=== PATIENT | male | born 1995 | race Two or more races ===

== ENCOUNTER 2024-02-14 14:55 | Outpatient (AMB) | payer OTHER, SELFPAY ==
[2024-02-14 15:07] VITALS: BP 148/80; PULSE 90; O2SAT 99; BMI 29.6
--- NOTE | 2024-02-14 15:07 | A.OFFPC_ITS ---
Vital Signs 02/14/24 15:07 02/14/24 16:02 Height 5 ft 11 in Weight 212 lb BMI 29.6 BP 148/80 H 124/78 Blood Pressure Location Lt brachial Lt brachial Position Sitting Pulse 90 Pulse Source Pulse Oximeter Pulse Oximetry (%) 99 Oxygen Delivery Method Room Air Intake Visit Reasons: New patient Cytology Supervisor Required: No Allergies Penicillins Allergy (Mild, Verified 02/14/24 15:40) Unknown Medication List - Last Reconciled 02/14/24 by Michelle Wagner PA-C insulin glargine (Lantus U-100 Insulin) 30 units subcut DAILY insulin lispro (Humalog KwikPen (U-100) Insulin) 12 units subcut TID lisinopril 10 mg PO DAILY simvastatin 10 mg PO DAILY Tobacco use date assessed: 02/14/24 Dental Screening Dental Screen Date: 02/14/24 Did you have a dental visit in the last 12 months?: Yes Did you have a dental problem in the last 6 months where you did not have access to dental care?: No Was dental information given to patient?: Patient has dentist HPI New patient HPI Details 28 year old male coming to the office fo r the first time. Patient has a history of type 1 diabetes and was previously using a continuous glucose monitor. He has a few concerns today the 1st being a rash on bilateral cheeks and bridge of his nose which has been present for the last 2 weeks he has been using Lubriderm intermittently without good relief. He also mentions his right middle finger is having pain over the knuckle which began 2 days ago and does not identify any injury. [facility] Family History Maternal Grandmother Colon cancer Social History Housing: Apartment Patient Tobacco Use Status: Never used Tobacco service: No Current occupational status: employed Cognitive needs: No Hearing needs: No Vision needs: No Questionnaire PHQ-9 Over the last 2 weeks, how often have you been bothered by any of the following problems? 2. Feeling down, depressed, or hopeless: not at all 3. Trouble falling or staying asleep, or sleeping too much: not at all 4. Feeling tired or having little energy: not at all 5. Poor appetite or overeating: not at all 6. Feeling bad about yourself - or that you are a failure or have let yourself or your family down: not at all 7. Trouble concentrating on things, such as reading the newspaper or watching television: not at all 8. Moving or speaking so slowly that other people could have noticed. Or the opposite - being so fidgety or restless that you have been moving around a lot more than usual: not at all 9. Thoughts that you would be better off or of hurting yourself in some way: not at all Depression Screening Interpretation: Negative Depression Screening Done: Yes 65147 - PHQ-9 Billing: Yes Source: Developed by Drs. Trent Baez, Amy Arango, Juarez Gonzalez and colleagues, with an educational mikayla from [employer]. Thrive Questionnaire Date Thrive assessed: 02/14/24 I am a: Patient What is your living situation today?: I have a steady place to live Within the past 12 months, did the food you bought not last and you didn't have the money to get more?: I choose not to answer this question Within the past 12 months, did you worry whether your food would run out before you got money to buy more?: I choose not to answer this question Do you have trouble paying for medicines?: No Do you have trouble getting transportation to medical appointments?: No Do you have trouble paying your heating and electricity bill?: No Do you have trouble taking care of your child, family member or friend?: No Do you have trouble with day-to-day activities such as bathing, preparing meals, shopping, managing finances, etc.?: No Are you currently unemployed and looking for a job?: No Are you interested in more education?: No Please select the resources that you would like help with: None Currently or been in a relationship where the following occur: I choose not to answer THRIVE Score: 0 AUDIT C Alcohol Use Questionnaire (AUDIT-C) 1. How often do you have a drink containing alcohol?: Never 3. How often do you have six or more drinks on one occasion?: Never Total Score: 0 MARA-7 AMB Questionnaire MARA-7 Date MARA - 7 assessed: 10/23/24 Feeling nervous, anxious, or on edge: 0 = Not at all Not being able to stop or control worryin = Not at all Worrying too much about different things: 0 = Not at all Trouble relaxin = Not at all Being so restless that it is hard to sit still: 0 = Not at all Becoming easily annoyed or irritable: 0 = Not at all Feeling afraid as if something awful might happen: 0 = Not at all Total MARA-7 score (0-4 normal; 5-9 mild; 10-14 moderate; 15-21 severe): 0 Source: Developed by Drs. Trent Baez, Amy Arango, Juarez Gonzalez and colleagues, with an educational mikayla from [employer]. MARA-7 Assessment Billing MARA-7 Assessment Tool: MARA-7 Assessment 77282 Review of Systems Const Denies body aches, Denies fatigue, Denies fever(s), Denies frequent falls, Denies headache(s) and Denies weakness Eyes Reports no additional complaints and Denies change in vision ENT Denies dysphagia, Denies dizziness, Denies facial pain, Denies headache(s), Denies nasal congestion and Denies odynophagia Card Denies chest pain, Denies syncope, Denies irregular heart rhythm, Denies leg edema, Denies lightheadedness and Denies dyspnea Resp Denies cough and Denies dyspnea GI Denies constipation, Denies dysphagia, Denies dyspepsia, Denies diarrhea, Denies nausea, Denies odynophagia and Denies vomiting Denies dysuria, Denies urinary frequency, Denies urinary hesitancy and Denies urinary urgency Musc Denies back pain and Denies myalgias Skin/Breast Reports system reviewed and no additional complaints, except as documented Neuro Denies dizziness, Denies syncope, Denies frequent falls, Denies headache(s) and Denies weakness Psych Reports no additional complaints Endo Denies fatigue Physical exam (Primary Care) Vital Signs: Last Vital Signs Pulse 90 02/14/24 15:07 BP 124/78 02/14/24 16:02 Pulse Ox 99 02/14/24 15:07 Oxygen Delivery Method Room Air 02/14/24 15:07 BMI result Body Mass Index 29.6 Tobacco/Smoking Status: Tobacco use Status Tobacco use date assessed 02/14/24 02/14/24 15:08 Patient Tobacco Use Status Never used Tobacco 02/14/24 15:29 Depression Screening Interpretation: Negative Thrive Assessment: Date of Thrive Assessment Date Thrive assessed 02/14/24 02/14/24 15:08 Currently or been in a relationship where the following occur: I choose not to answer Const General: cooperative, healthy appearing, comfortable and no acute distress Orientation/consciousness: patient oriented x3 HENMT Head: Yes normocephalic Ears: hearing grossly normal bilaterally General nose exam: Normal external nose present Face and sinus: Yes normal facial exam and Yes sinuses nontender Mouth: Normal oral and palatal mucosa present and tongue normal Throat: Yes posterior oropharynx normal Eyes General: appearance normal, both eyes and all related structures Conjunctivae: conjunctivae normal Pupils: Equal, round and reactive pupils present EOM: EOMs intact bilaterally and No Nystagmus present Neck Neck: Yes full ROM and Yes no lymphadenopathy Chest Chest palpation & inspection: normal inspection of the chest Resp Effort & Inspection: normal respiratory effort Auscultation: clear to auscultation bilaterally, no crackles, no rales, no rhonchi and no wheezes Cardio Rate: regular rate Rhythm: regular rhythm Peripheral pulses: radial pulses present and dorsalis pedis present GI Inspection: Yes normal to inspection and No Abdominal wall edema Palpation (GI): Soft to palpation, not firm and nontender Auscultation: normal bowel sounds Rectal Exam - Male: Yes deferred General: Yes no CVA tenderness Back/Spine/Pelvis Back: no CVA tenderness Skin Other: Dry, flaky rash on bilateral cheeks and bridge of nose General skin exam: no rashes or lesions noted Neuro General: patient oriented x3 Cranial nerves: Yes Equal, round and reactive pupils present, Yes Midline tongue present, Yes Ability to bilaterally elevate shoulders present and No Nystagmus present Gait exam (Neuro): Normal gait present Extrem Other: Pain to palpation of upper extremity 3rd digit PIP joint without swelling or erythema General: Yes normal to inspection, Yes full ROM and No edema Psych Speech and movement: Normal speech and movement present Affect: normal affect Attitude: cooperative Insight: Good insight present (Psych) Judgement: Good judgement present (Psych) Coding Level of Care Code New Pt Prev Care 18-39yr(41912 Diagnoses Diabetes mellitus type 1 E10.9 Hypercholesterolemia E78.00 Hypertension I10 Facial rash R21 Finger pain, right M79.644 Annual physical exam Z00.00 Additional Codes MARA-7 Assessment Billing - MARA-7 Assessment Tool: MARA-7 Assessment 83928 ([id number]) Assessment & Plan Assessment & Plan (1) Diabetes mellitus type 1: Code(s): E10.9 - Type 1 diabetes mellitus without complications Category: Medical Plan: Decrease the amount of carbohydrates such as pasta, bread, rice, and potatoes and limit the amount of sweets. Although fruits are generally healthy they should be eaten in moderation as they are still high in sugar. Hemoglobin A1c goal of less than 7%. Ordered for updated blood work. Placed order for continuous glucose monitor and referral placed to endocrinology. (2) Hypercholesterolemia: Code(s): E78.00 - Pure hypercholesterolemia, unspecified Category: Medical Plan: Avoid foods that are high in cholesterol such as red meat, fried foods, eggs and baked goods. Triglyceride goal of less than 150 and LDL goal of less than 100. Continue on simvastatin. Ordered for updated cholesterol labs. (3) Hypertension: Code(s): I10 - Essential (primary) hypertension Category: Medical Plan: Continue on current blood pressure medication. Avoid salt intake and encourage healthy diet and regular exercise. Patient states blood pressures have been normal at home however he does get nervous when coming to the office and we will occasionally see high blood pressures. (4) Facial rash: Code(s): R21 - Rash and other nonspecific skin eruption Category: Medical Plan: Advised patient to continue using Lubriderm and we will give very low dose of steroid lotion to be used for the next 2 weeks. Discussed with patient this medication should not be used for longer than 2 weeks and if it persists can consider referral to Dermatology. Rash not consistent with rosacea or malar rash associated with SLE. (5) Finger pain, right: Code(s): M79.644 - Pain in right finger(s) Category: Medical Plan: Discussed with the patient this is most likely related to muscle or tendon inflammation we will continue to monitor and discussed if pain persists to follow up with the office. (6) Annual physical exam: Code(s): Z00.00 - Encounter for general adult medical examination without abnormal findings Category: Medical Plan: Patient is up-to-date on all recommended routine screenings and vaccinations for his age. Ordered updated blood work and we will follow up in 3 months for follow up on diabetes. Plan This note was constructed using voice recognition software. While every effort has been made to ensure accuracy and manager pulmonary, still areas may have been included sometimes these areas may affect the content or meeting of the given symptoms. Total time spent caring for the patient today was 30 minutes. This includes time spent before the visit reviewing the chart, time spent during the visit, and time spent after the visit and documentation. Orders: Orders Comprehensive Met. Panel Today Z00.00 - Encounter for general adult medical examination without abnormal findings Complete Blood Count Auto Diff Today Z00.00 - Encounter for general adult medical examination without abnormal findings Vitamin B12 and Folate Today Z00.00 - Encounter for general adult medical examination without abnormal findings Free T4 (Free Thyroxine) Today Z00.00 - Encounter for general adult medical examination without abnormal findings Hemoglobin A1c Today E10.9 - Type 1 diabetes mellitus without complications, Z00.00 - Encounter for general adult medical examination without abnormal findings Lipid Panel Today Z00.00 - Encounter for general adult medical examination without abnormal findings TSH reflex Free T4 Today Z00.00 - Encounter for general adult medical examination without abnormal findings Vitamin D 25-OH (D2 and D3) Today Z00.00 - Encounter for general adult medical examination without abnormal findings Microalbumin, Random (w Creat) Today E11.9 - Type 2 diabetes mellitus without complications UA CC w/rflx Micro + Cult Today R35.89 - Other polyuria Referrals Endocrinology Referral E10.9 - Type 1 diabetes mellitus without complications Medications: New insulin glargine (Lantus U-100 Insulin) 30 units (0.3 mL) subcut DAILY 10 mL 0RF insulin lispro (Humalog KwikPen (U-100) Insulin) 12 units (0.12 mL) subcut TID 15 mL 0RF triamcinolone acetonide 0.025% for no longer than 2 weeks at a time. 1 appl topical DAILY 60 mL 0RF flash glucose sensor (FreeStyle Salazar 2 Sensor kit) As directed 1 ea 2RF
[2024-02-14 16:02] VITALS: BP 124/78
== END 2024-02-14 16:12 | disposition home or self-care (01) ==
DX: Z00.00 Encounter for general adult medical examination without abnormal findings (principal); E10.9 Type 1 diabetes mellitus without complications; E78.00 Pure hypercholesterolemia, unspecified; I10 Essential (primary) hypertension; R21 Rash and other nonspecific skin eruption; M79.644 Pain in right finger(s)

== ENCOUNTER → 2024-02-14 14:55 | Outpatient (BNVA) | payer OTHER, SELFPAY | DX: Z00.01 Encounter for general adult medical examination with abnormal findings (principal); E10.9 Type 1 diabetes mellitus without complications; E78.00 Pure hypercholesterolemia, unspecified; R21 Rash and other nonspecific skin eruption; I10 Essential (primary) hypertension; M79.644 Pain in right finger(s) | CPT/HCPCS: 96127; 99385 ==

== ENCOUNTER 2024-02-16 08:10 | Outpatient (REF) | payer OTHER, SELFPAY ==
[2024-02-16 08:26] LABS: MANUAL DIFF FLAG NO
[2024-02-16 08:52] LABS: Basophils Percent Auto 0.9 % (0-2); Eosinophils Absolute Auto 0.1 X10*3/uL (0.0-0.4); Eosinophils Percent Auto 1.8 % (0-4); Hematocrit 46.8 % (42.0-52.0); Imm Gran Abs Auto 0.01 X10*3/uL (0.00-0.03); Imm Gran Pct Auto 0.3 % (0.0-0.4); Lymphocytes Absolute Auto 1.8 X10*3/uL (1.2-4.9); Lymphocytes Percent Auto 53.3 % (20-40); Mean Corpuscular HGB Conc 34.2 g/dl (31.0-36.0); Mean Corpuscular Hemoglobin 29.3 pg (27.0-33.0); Mean Corpuscular Volume 85.6 fL (80.0-98.0); Mean Platelet Volume 10.2 fL (9.4-12.4); Monocytes Absolute Auto 0.3 X10*3/uL (0.1-1.2); Monocytes Percent Auto 8.1 % (2-11); Neutrophils Absolute Auto 1.2 x10*3/uL (2.0-8.3); Neutrophils Percent Auto 35.6 % (45-73); Platelet Count 301 X10*3/uL (160-400); Red Blood Count 5.47 X10*6/uL (4.60-5.80); Red Cell Distribution Width 12.8 % (11.0-16.0); White Blood Count 3.3 X10*3/uL (4.8-10.8)
[2024-02-16 08:57] LABS: Appearance Urine Clear; Color Urine Yellow; Glucose Urine UA >=1000 mg/dL (Negative); Leukocyte Esterase Urine Negative (Negative); Nitrite Urine Negative (Negative); PH 5.5 (5.0-9.0); Specific Gravity - Urine >= 1.030 (1.005-1.025); UMIC TRIGGER UACC YES; Urine Blood Negative (Negative); Urine Ketones Negative (Negative); Urine Protein Negative (Neg-Trace)
[2024-02-16 09:02] LABS: Bacteria Urine None Seen (None Seen); Hyaline Casts Urine 0-2 /LPF (0-2); RBC Urine 0-2 /HPF (0-2); Squamous Epithelial Cell Urine 0-2 /HPF (0-2); WBC Urine 0-5 /HPF (0-5)
[2024-02-16 09:02] LABS: Estimated Average Glucose 177 mg/dL; Hemoglobin A1C 232.8372 umol/L; Hemoglobin A1c % 7.8 % (<6.0); Total Hemoglobin (HGBA1C) 3801.3554 umol/L
[2024-02-16 09:15] LABS: Creatinine Urine 107.27 mg/dL; Microalbum/Creatinine Ratio Ur 31.6 ug/mg cr (<30)
[2024-02-16 09:31] LABS: Albumin Level 4.3 g/dL (3.5-5.0); Alkaline Phosphatase 63 U/L (39-117); Anion Gap 11 (12-20); Aspartate Amino Transferase 38 U/L (5-37); Bilirubin Total 1.4 mg/dL (0.0-1.0); Blood Urea Nitrogen 15 mg/dL (9-16); Calcium 9.8 mg/dL (8.4-10.2); Carbon Dioxide 28 mmol/L (22-29); Chloride 100 mmol/L (96-108); Cholesterol 203 mg/dL (<200); Estimated Glomerular Filt Rate > 60; Glucose Random 320 mg/dL (60-115); HDL Cholesterol 64 mg/dL (>40); LDL Cholesterol Calculated 127 mg/dL (<100); Potassium 4.1 mmol/L (3.3-5.1); Sodium 135 mmol/L (135-145); Total Protein 7.8 g/dL (6.5-8.0); Triglycerides 60 mg/dL (<150)
[2024-02-16 09:34] LABS: Alanine Aminotransferase 90 U/L (0-40)
[2024-02-16 09:41] LABS: TSH reflex Free T4 1.26 uIU/mL (0.32-4.0)
[2024-02-16 09:50] LABS: Folate 13.9 ng/mL (> or = 4.0); Vitamin B12 967 pg/mL (200-900)
[2024-02-21 17:34] LABS: Vitamin D 25-OH, D2 <4 ng/mL; Vitamin D 25-OH, D3 20 ng/mL; Vitamin D 25-OH, Total 20 ng/mL (30-100)
== END 2024-02-16 08:11 | disposition home or self-care (01) ==
LOC: HO.LAB 08:10
DX: Z00.00 Encounter for general adult medical examination without abnormal findings (principal); E10.9 Type 1 diabetes mellitus without complications; E11.9 Type 2 diabetes mellitus without complications
CPT/HCPCS: 36415; 80053; 80061; 81001; 82043; 82306; 82570; 82607; 82746; 83036; 84439; 84443; 85025

== ENCOUNTER 2024-03-19 08:08 | Outpatient (REF) | payer OTHER, SELFPAY ==
[2024-03-19 09:39] LABS: Appearance Urine Clear; Color Urine Yellow; Glucose Urine UA 250 mg/dL (Negative); Leukocyte Esterase Urine Negative (Negative); Nitrite Urine Negative (Negative); PH 5.5 (5.0-9.0); Specific Gravity - Urine 1.025 (1.005-1.025); Urine Blood Negative (Negative); Urine Ketones Negative (Negative); Urine Protein Negative (Neg-Trace)
[2024-03-19 09:40] LABS: Alanine Aminotransferase 62 U/L (0-40); Albumin Level 4.1 g/dL (3.5-5.0); Alkaline Phosphatase 61 U/L (39-117); Aspartate Amino Transferase 28 U/L (5-37); Bilirubin Direct 0.4 mg/dL (0.0-0.5); Bilirubin Total 1.4 mg/dL (0.0-1.0); Total Protein 7.2 g/dL (6.5-8.0)
== END 2024-03-19 08:09 | disposition home or self-care (01) ==
LOC: HO.LAB 08:08
DX: E10.9 Type 1 diabetes mellitus without complications (principal); R79.89 Other specified abnormal findings of blood chemistry; R35.89 Other polyuria
CPT/HCPCS: 36415; 80076; 81003; 82947; 99202

== ENCOUNTER 2024-03-19 14:36 | Outpatient (AMB) | payer OTHER, SELFPAY ==
[2024-03-19 14:40] VITALS: BP 140/90; PULSE 84; BMI 30.5
--- NOTE | 2024-03-19 14:40 | A.OFFVIS_ITS ---
Vital Signs 03/19/24 14:40 Height 5 ft 11 in Weight 218 lb 11.177 oz BMI 30.5 BP 140/90 H Blood Pressure Location Lt brachial Position Sitting Pulse 84 Pulse Source Pulse Oximeter Intake Visit Reasons: T1DM Intake Note: Patient presents today for D1NH follow up visit. Last Diabetic Eye exam: 01/2024 Last Podiatry Visit: Doesn't have one Random Glucose: 98 mg/dl HgA1c:7.8% 02/16/24 Executive Business Coach Required: Yes Executive Business Coach Language: Counter Top Assembler Services: Executive Business Coach Present Information Interpreted: non-clinical & clinical Accompanied by: Self / Same As Patient Allergies Penicillins Allergy (Mild, Verified 03/19/24 14:45) Unknown Medication List - Last Reconciled 03/19/24 by Trent Maynard MD cholecalciferol (vitamin D3) 25 mcg PO DAILY flash glucose sensor (FreeStyle Salazar 2 Sensor kit) As directed insulin glargine-yfgn 30 units (0.3 mL) subcut DAILY insulin lispro (Humalog KwikPen (U-100) Insulin) 12 units (0.12 mL) subcut TID lisinopril 10 mg PO DAILY simvastatin 20 mg PO DAILY triamcinolone acetonide 0.025% 1 appl topical DAILY HPI Comments Details: 28 YO M with is seen in consultation for T1DM at the request of PCP. Initially diagnosed with T1DM in since age 13 when presented with hospitalized after jeshermanfish .Saw stephanie in [place] Was initially started on treatment with insulin . Current regimen: Lantus 30 units Humalog 12 units TID No Checks sugars times per day. Unfortunately, patient did not bring log book or glucometer to visit Most recent A1C: 7.8 , [ Reports low sugars 3 X mo Treats lows with juice, milk . Checks sugar after to ensure it is rising. Waits 30 min to check Family history of autoimmunity in grandmother - Type 2 DM - cousin has Type 1 Has eyes checked yearly, last eye exam 1 mo ago , no retinopathy. Denies neuropathy, Not sees podiatry. Denies nephropathy, on YUNG/ARB. Has HLD, on statin. Denies history of CAD. Had diabetes education in [place] Diet/Carb counting: No Denies prior episodes of DKA. Denies prior severe episodes of hypoglycemia requiring help or hospitalization 2 times - Nov 2021, June and May 2022 . Labs: [facility] Family History Maternal Grandmother Colon cancer Social History Housing: Apartment Patient Tobacco Use Status: Never used Tobacco service: No Current occupational status: employed Cognitive needs: No Hearing needs: No Vision needs: No Physical Exam Vital Signs: Last Vital Signs Pulse 84 03/19/24 14:40 BP 140/90 H 03/19/24 14:40 BMI result Body Mass Index 30.5 Absence of Cushingoid features. Absence of acromegalic features. Neck exam reveals nl size thyroid about 15 gms. No thyroid nodules palpable. No carotid bruits present. Lungs CTA. Heart S1 S2, Reg R/R. No M/R/ G. Skin exam reveals absence of vitiligo or acanthosis nigricans. Abdominal exam reveals Soft NT/ND with NA BS. No organomegaly present. Extrem Other: Visual exam of foot performed. No ulcerations or open lesions. No onchomycosis, no callouses.Pulses 2 + distally. Sensation intact to monofilament exam. Vibratory sensation sensed 10 seconds in right, 10 seconds in left with 128 Hz tuning fork Results Reviewed Results Reviewed: Laboratory Last Values Glucose (Clinic) 98 mg/dL (60-115) 03/19/24 14:49 Assessment & Plan Assessment & Plan (1) Diabetes mellitus type 1: Code(s): E10.9 - Type 1 diabetes mellitus without complications Category: Medical Plan: This 28-year-old male with a history of type 1 diabetes being treated with basal-bolus insulin with fair glycemic control and no known microvascular macrovascular complication Plan is to have the patient check his point of cares pre and post meals. Will prescribe glucose sensor Salazar 3+. Will have patient bring sensor to follow up appointments. Will schedule appointment CDE and restorative rehab aide. Could not make any adjustments to insulin regimen at present time because patient did not have any data. With the help of police sergeant precinct went over correlation of poor glycemic control with development of progression of complications. Patient expressed an interest in diabetic pumps they will discuss this further with the educator. We will also check anti-jaleel 65 antibodies to confirm type 1 diabetes. Also prescribed a glucagon nasal spray Sis and went over sick day rules. He will follow up with Nichole Castro NP in 2 mos Orders: Orders Glutamic acid decarboxylase Ab Today E10.9 - Type 1 diabetes mellitus without complications Referrals Diabetes Education Referral E10.9 - Type 1 diabetes mellitus without c omplications Nutrition/Dietitian Referral E10.9 - Type 1 diabetes mellitus without complications Medications: New glucagon 3 mg/actuation (Baqsimi) 3 mg intranasal ONCE 2 ea 5RF blood-glucose sensor (FreeStyle Salazar 3 Plus Sensor device) As directed change every 14 days 2 ea 5RF Coding Level of Care Code New Pt Level 5 (05480) Diagnoses Diabetes mellitus type 1 E10.9 Time Spent (min) 60
[2024-03-19 14:52] LABS: Glucose, Whole Blood 98 mg/dL (60-115)
== END 2024-03-19 15:46 | disposition home or self-care (01) ==
PROVIDERS: Visit Provider Internal Medicine Endocrinology, Diabetes & Metabolism
DX: E10.9 Type 1 diabetes mellitus without complications (principal)
CPT/HCPCS: 99205

== ENCOUNTER 2024-03-20 08:01 | Outpatient (REF) | payer OTHER, SELFPAY ==
[2024-03-20 10:08] LABS: HBc Num1 0.13 S/CO (0.00-0.79); HBsAGNum1 0.55 S/CO (0.00-0.99); Hepatitis A Antibody IgM 0.19 Index (0-0.79); Hepatitis B Core Antibody Nonreactive (Nonreactive); Hepatitis B Surface Antigen Negative (Negative); ~HepC Num1 0.11 S/CO (0.00-0.79); ~Hepatitis A Antibody IgM Nonreactive (Nonreactive); ~Hepatitis C Antibody Nonreactive (Nonreactive)
[2024-03-20 11:45] LABS: HBS Num2 9.95 mIU/mL (0-7.99); HBS Num3 9.68 mIU/mL (0-7.99); ~Hepatitis B Surface Antibody GRAYZONE (Nonreactive)
[2024-03-24 21:03] LABS: Glutamic acid decarboxylase Ab <5 IU/mL (<5)
== END 2024-03-20 08:02 | disposition home or self-care (01) ==
LOC: HO.LAB 08:01
PROVIDERS: Referring Provider Internal Medicine Endocrinology, Diabetes & Metabolism
DX: E10.9 Type 1 diabetes mellitus without complications (principal); R79.89 Other specified abnormal findings of blood chemistry
CPT/HCPCS: 36415; 86341; 86704; 86706; 86709; 86803; 87340

== ENCOUNTER 2024-04-01 10:33 | Outpatient (REF) | payer OTHER, SELFPAY ==
[2024-04-01 12:03] LABS: Glucose Random 222 mg/dL (60-115)
[2024-04-02 14:34] LABS: C Peptide 0.27 ng/mL (0.80-3.85)
[2024-04-11 04:09] LABS: Insulin Auto Antibody 6.2 U/mL (<0.4)
== END 2024-04-01 10:34 | disposition home or self-care (01) ==
LOC: HO.LAB 10:33
PROVIDERS: Visit Provider Internal Medicine Endocrinology, Diabetes & Metabolism
DX: E10.9 Type 1 diabetes mellitus without complications (principal)
CPT/HCPCS: 36415; 82947; 84681; 86337

== ENCOUNTER 2024-04-10 10:41 | Outpatient (AMB) | payer OTHER, SELFPAY ==
--- NOTE | 2024-04-10 10:49 | A.OFFVIS_ITS ---
Intake Intake Visit Reasons: T1DM Employee Benefits Insurance Agent Required: Yes Employee Benefits Insurance Agent Language: Wireless Telegrapher Name: Citlalli [phone] Information Interpreted: non-clinical & clinical Accompanied by: Self / Same As Patient Allergies Penicillins Allergy (Mild, Verified 03/19/24 14:45) Unknown HPI Comprehensive Diabetes Asmnt Most Recent Diabetes Results: Microalb/Creat Ratio 31.6 ug/mg cr (<30) H 02/16/24 Cholesterol 203 mg/dL (<200) H 02/16/24 HDL Cholesterol 64 mg/dL (>40) 02/16/24 Triglycerides 60 mg/dL (<150) 02/16/24 Creatinine 1.11 mg/dL (0.5-1.4) 02/16/24 Blood Urea Nitrogen 15 mg/dL (9-16) 02/16/24 Sodium 135 mmol/L (135-145) 02/16/24 Potassium 4.1 mmol/L (3.3-5.1) 02/16/24 Chloride 100 mmol/L (96-108) 02/16/24 Carbon Dioxide 28 mmol/L (22-29) 02/16/24 Calcium 9.8 mg/dL (8.4-10.2) 02/16/24 AST 28 U/L (5-37) 03/19/24 ALT 62 U/L (0-40) H 03/19/24 Total Protein 7.2 g/dL (6.5-8.0) 03/19/24 Albumin 4.1 g/dL (3.5-5.0) 03/19/24 PFSH Family History Maternal Grandmother Colon cancer Social History Housing: Apartment Patient Tobacco Use Status: Never used Tobacco service: No Current occupational status: employed Cognitive needs: No Hearing needs: No Vision needs: No Assessment & Plan Assessment & Plan (1) Diabetes mellitus type 1: Code(s): E10.9 - Type 1 diabetes mellitus without complications Plan: Pump Assessment: Type of DM: Type 1 Dx at age: 13 y/o Previous DKA: denies Current Insulin Rx: MDI Patient takes insulin as prescribed: yes Patient? checks BG Salazra 3 sensors Downloaded meter today-No Patient? reports glycemic control as: fair Most recent Hgb A1C: 7.8% 01/2024 Frequency of low B-3 times weekly Low BG treatment: milk or fruit juice Frequency of high BG: daily Does patient check Ketones? no Has pt been on a pump in the past? no Reviewed insulin pump basics today with Patient. Explained pros and cons of i nsulin pumps. Showed pt various pumps, infusion sets, and cgms currently available. Reviewed need to wear pump 24/7 and need to change infusion set every 3 days. Also stressed importance of frequent BG checks, 4x daily minimum or use pump that is integrated with CGM.? TDD:66 units Patient demonstrated motivation for continued insulin pump education and understands the need to complete education prior to starting insulin pump for best outcome. Patient given Upper Sorbian handout regarding when and how to test for ketones Portions of this note were created using voice recognition software, please excuse any words or phrases that may have been misinterpreted. Patient Instructions: Llame para jeffery jess de capacitaci?n sobre la bomba de insulina Recoge tiras de cetonas y jeringas de insulina. Coding Level of Care Code Est Pt Level 1 (58656) Diagnoses Diabetes mellitus type 1 E10.9
== END 2024-04-10 11:40 | disposition home or self-care (01) ==
PROVIDERS: Visit Provider Registered Nurse Diabetes Educator
DX: E10.9 Type 1 diabetes mellitus without complications (principal)

== ENCOUNTER → 2024-04-10 10:41 | Outpatient (BNVA) | payer OTHER, SELFPAY | PROVIDERS: Visit Provider Registered Nurse Diabetes Educator | DX: E10.9 Type 1 diabetes mellitus without complications (principal) | CPT/HCPCS: 99211 ==

== ENCOUNTER 2024-04-23 08:49 | Outpatient (AMB) | payer OTHER, SELFPAY ==
--- NOTE | 2024-04-23 10:23 | A.OFFVIS_ITS ---
Intake Intake Visit Reasons: Pump training Software Qa Manager Required: Yes Software Qa Manager Language: General Car Supervisor Yard Name: Khanh [facility] Accompanied by: Spouse Allergies Penicillins Allergy (Mild, Verified 03/19/24 14:45) Unknown HPI Comprehensive Diabetes Asmnt Most Recent Diabetes Results: Microalb/Creat Ratio 31.6 ug/mg cr (<30) H 02/16/24 Cholesterol 203 mg/dL (<200) H 02/16/24 HDL Cholesterol 64 mg/dL (>40) 02/16/24 Triglycerides 60 mg/dL (<150) 02/16/24 Creatinine 1.11 mg/dL (0.5-1.4) 02/16/24 Blood Urea Nitrogen 15 mg/dL (9-16) 02/16/24 Sodium 135 mmol/L (135-145) 02/16/24 Potassium 4.1 mmol/L (3.3-5.1) 02/16/24 Chloride 100 mmol/L (96-108) 02/16/24 Carbon Dioxide 28 mmol/L (22-29) 02/16/24 Calcium 9.8 mg/dL (8.4-10.2) 02/16/24 AST 28 U/L (5-37) 03/19/24 ALT 62 U/L (0-40) H 03/19/24 Total Protein 7.2 g/dL (6.5-8.0) 03/19/24 Albumin 4.1 g/dL (3.5-5.0) 03/19/24 PFSH Family History Maternal Grandmother Colon cancer Social History Housing: Apartment Patient Tobacco Use Status: Never used Tobacco service: No Current occupational status: employed Cognitive needs: No Hearing needs: No Vision needs: No Assessment & Plan Assessment & Plan (1) Diabetes mellitus type 1: Code(s): E10.9 - Type 1 diabetes mellitus without complications Plan: Patient presents for pump training for iLet pump and CGM training today. The following topics were reviewed today: -Pump therapy basic concepts: Basal/bolus -Device settings: Bluetooth/mobile connection (if applicable), correct date and time, sound volume -CGM settings(if integrated system): CGM graft views and trend arrows, alerts and alarms, Start new sensor Insulin delivery settings Instructed patient to only use room temperature insulin, how to load cartridge or fill pod, with insulin. Fill tubing and cannula (if applicable) Inserting infusion set or starting pod Troubleshooting after starting new pod or inserting new insulin set: Occlusion, adhesive tape sensitivity, redness Check BG 2 hours after site change Safety information: Importance of a backup plan, for manual injections, proper prescriptions and emergency supplies ketone strips, and rules for testing for ketones Patient was able to insert insulin set today without difficulty. Patient understands the basic concepts of pump therapy, how to give insulin for meals and snacks, how to troubleshoot for hyper and hypoglycemia. Patient will follow up with CDE as instructed Patient will contact CDE with questions or concerns, patient given IT number to support in any technical issues related to insulin pump Portions of this note were created using voice recognition software, please excuse any words or phrases that may have been misinterpreted. Patient Instructions: Patient will follow-up on 04/25/2024 Coding Level of Care Code Est Pt Level 1 (25855) Diagnoses Diabetes mellitus type 1 E10.9
== END 2024-04-23 10:28 | disposition home or self-care (01) ==
PROVIDERS: Visit Provider Registered Nurse Diabetes Educator
DX: E10.9 Type 1 diabetes mellitus without complications (principal)

== ENCOUNTER → 2024-04-23 08:49 | Outpatient (BNVA) | payer OTHER, SELFPAY | PROVIDERS: Visit Provider Registered Nurse Diabetes Educator | DX: Z96.41 Presence of insulin pump (external) (internal) (principal); E10.9 Type 1 diabetes mellitus without complications; Z79.4 Long term (current) use of insulin | CPT/HCPCS: 99211 ==

== ENCOUNTER 2024-04-25 07:52 | Outpatient (AMB) | payer OTHER, SELFPAY ==
--- NOTE | 2024-04-25 08:10 | A.OFFVIS_ITS ---
Intake Intake Visit Reasons: T1DM Campground Attendant Required: Yes Campground Attendant Language: Construction Representative Name: Khanh [facility] [place] Information Interpreted: non-clinical & clinical Accompanied by: Self / Same As Patient Allergies Penicillins Allergy (Mild, Verified 03/19/24 14:45) Unknown HPI Comprehensive Diabetes Asmnt Most Recent Diabetes Results: Microalb/Creat Ratio 31.6 ug/mg cr (<30) H 02/16/24 Cholesterol 203 mg/dL (<200) H 02/16/24 HDL Cholesterol 64 mg/dL (>40) 02/16/24 Triglycerides 60 mg/dL (<150) 02/16/24 Creatinine 1.11 mg/dL (0.5-1.4) 02/16/24 Blood Urea Nitrogen 15 mg/dL (9-16) 02/16/24 Sodium 135 mmol/L (135-145) 02/16/24 Potassium 4.1 mmol/L (3.3-5.1) 02/16/24 Chloride 100 mmol/L (96-108) 02/16/24 Carbon Dioxide 28 mmol/L (22-29) 02/16/24 Calcium 9.8 mg/dL (8.4-10.2) 02/16/24 AST 28 U/L (5-37) 03/19/24 ALT 62 U/L (0-40) H 03/19/24 Total Protein 7.2 g/dL (6.5-8.0) 03/19/24 Albumin 4.1 g/dL (3.5-5.0) 03/19/24 PFSH Family History Maternal Grandmother Colon cancer Social History Housing: Apartment Patient Tobacco Use Status: Never used Tobacco service: No Current occupational status: employed Cognitive needs: No Hearing needs: No Vision needs: No Assessment & Plan Assessment & Plan (1) Diabetes mellitus type 1: Code(s): E10.9 - Type 1 diabetes mellitus without complications Plan: Patient presents for pump training for iLet pump and CGM training today. The following topics were reviewed today: -Pump therapy basic concepts: Basal/bolus -For most effective glucose control bolus prior to meals - Off pump backup insulin plan iLet Alerts: ??? High Alert: 300 mg/dl ??? Low Alert: 75 mg/dl CGM: At this visit we are unable to review CGM data due to inability to register eyelid on [employer] website E-mail sent to customer service, for assistance in registering patient's iLet device Patient's average glucose for the past 2 days 147 mg/dL TDD:50 units Basal: Instructed patient to only use room temperature insulin, how to load cartridge or fill pod, with insulin. Fill tubing and cannula (if applicable) Troubleshooting after starting new pod or inserting new insulin set: Occlusion, adhesive tape sensitivity, redness Check BG 2 hours after site change Reviewed Safety information: Importance of a backup plan, for manual injections, proper prescriptions and emergency supplies ketone strips, and rules for testing for ketones Patient understands the basic concepts of pump therapy, how to give insulin for meals and snacks, how to troubleshoot for hyper and hypoglycemia. Patient will follow up with [facility] as instructed Patient will contact [facility] with questions or concerns, patient given IT number to support in any technical issues related to insulin pump Portions of this note were created using voice recognition software, please excuse any words or phrases that may have been misinterpreted. Patient Instructions: Patient will follow-up with religious educator in 3 months Coding Level of Care Code Est Pt Level 1 (71406) Diagnoses Diabetes mellitus type 1 E10.9
== END 2024-04-25 08:16 | disposition home or self-care (01) ==
PROVIDERS: Visit Provider Registered Nurse Diabetes Educator
DX: E10.9 Type 1 diabetes mellitus without complications (principal)

== ENCOUNTER → 2024-04-25 07:52 | Outpatient (BNVA) | payer OTHER, SELFPAY | PROVIDERS: Visit Provider Registered Nurse Diabetes Educator | DX: E10.9 Type 1 diabetes mellitus without complications (principal); Z79.4 Long term (current) use of insulin; Z96.41 Presence of insulin pump (external) (internal) | CPT/HCPCS: 99211 ==

== ENCOUNTER 2024-06-18 08:08 | Outpatient (AMB) | payer OTHER, SELFPAY ==
--- NOTE | 2024-06-18 08:14 | A.OFFPC_ITS ---
Vital Signs 06/18/24 08:16 Height 5 ft 11 in Weight 217 lb 6 oz BMI 30.3 BP 118/72 Blood Pressure Location Lt brachial Position Sitting Pulse 90 Pulse Source Pulse Oximeter Temp 97.1 F Temp Source Temporal Artery Scan Pulse Oximetry (%) 99 Oxygen Delivery Method Room Air Intake Visit Reasons: f/u DM Intake Note: Patient is here to follow up on DM. Complaint of dry cough for two days. Mission Analyst Required: Yes Mission Analyst Language: Breaking Machine Operator Name: Harpreet ([id number]) Information Interpreted: non-clinical & clinical Blending Tank Tender Helper: Not Required per policy Accompanied by: Self / Same As Patient Allergies Penicillins Allergy (Mild, Verified 06/18/24 08:43) Unknown Medication List - Last Reconciled 06/18/24 by Michelle Wagner PA-C blood-glucose sensor (FreeStyle Salazar 3 Plus Sensor device) As directed change every 14 days cholecalciferol (vitamin D3) 25 mcg PO DAILY flash glucose sensor (FreeStyle Salazar 2 Sensor kit) As directed glucagon 3 mg/actuation (Baqsimi) 3 mg intranasal ONCE insulin glargine-yfgn 30 units (0.3 mL) subcut DAILY insulin lispro (Humalog KwikPen (U-100) Insulin) 12 units (0.12 mL) subcut TID insulin lispro (Humalog U-100 Insulin) Infuse up to 80 units via insulin pump subcutaneously 3 times a day; insulin syringes (disposable) As directed- QID with insulin administration Ketone Urine Test (acetone (urine) test) As directed NS lisinopril 10 mg PO DAILY simvastatin 20 mg (2 x 10 mg) PO DAILY triamcinolone acetonide 0.025% 1 appl topical DAILY Tobacco use date assessed: 06/18/24 Dental Screening Dental Screen Date: 06/18/24 Did you have a dental visit in the last 12 months?: Yes Did you have a dental problem in the last 6 months where you did not have access to dental care?: No Was dental information given to patient?: Patient has dentist HPI f/u DM HPI Details 29-year-old male with past medical histo ry of type 1 diabetes, hypercholesterolemia, hypertension last seen 01/2024 coming in for follow up on diabetes. In review of the notes, patient has been following with [facility] endocrinology for insulin pump. software engineer intern Harpreet ([id number]) used for the duration of this visit. Alber fernandezmc with follow-up for diabetes management. Uses an insulin pump since March 2021 resulting in improved HbA1c from 7.8% to 6.9%. Experienced placement issues with the insulin pump resolved to ensure correct insulin delivery. Reports asymptomatic episodes of hypoglycemia with blood glucose levels at 50-60 mg/dL. [facility] Surgical History No pertinent past surgical history Family History Maternal Grandmother Colon cancer Social History Housing: Apartment Alcohol intake: never Patient Tobacco Use Status: Never used Tobacco e-Cigarette/Vaping Use: Never Used Second Hand Smoke Exposure: No service: No Current occupational status: employed Cognitive needs: No Hearing needs: No Vision needs: Yes (Glasses) Questionnaire PHQ-9 Over the last 2 weeks, how often have you been bothered by any of the following problems? 1. Little interest or pleasure in doing things: not at all 2. Feeling down, depressed, or hopeless: not at all 3. Trouble falling or staying asleep, or sleeping too much: not at all 4. Feeling tired or having little energy: not at all 5. Poor appetite or overeating: not at all 6. Feeling bad about yourself - or that you are a failure or have let yourself or your family down: not at all 7. Trouble concentrating on things, such as reading the newspaper or watching television: not at all 8. Moving or speaking so slowly that other people could have noticed. Or the opposite - being so fidgety or restless that you have been moving around a lot more than usual: not at all 9. Thoughts that you would be better off or of hurting yourself in some way: not at all Total score: 0 Depression Screening Interpretation: Negative Depression Screening Done: Yes Source: Developed by Drs. Trent Baez, Amy Arango, Juarez Gonzalez and colleagues, with an educational mikayla from [employer]. Thrive Questionnaire Date Thrive assessed: 06/18/24 AUDIT C Alcohol Use Questionnaire (AUDIT-C) 1. How often do you have a drink containing alcohol?: Never Total Score: 0 MARA-7 AMB Questionnaire MARA-7 Date MARA - 7 assessed: 06/18/24 Feeling nervous, anxious, or on edge: 0 = Not at all Not being able to stop or control worryin = Not at all Worrying too much about different things: 0 = Not at all Trouble relaxin = Not at all Being so restless that it is hard to sit still: 0 = Not at all Becoming easily annoyed or irritable: 0 = Not at all Feeling afraid as if something awful might happen: 0 = Not at all Total MARA-7 score (0-4 normal; 5-9 mild; 10-14 moderate; 15-21 severe): 0 Source: Developed by Drs. Trent Baez, Amy Arango, Juarez Gonzalez and colleagues, with an educational mikayla from [employer]. Review of Systems Const Denies body aches, Denies chills, Denies fever(s), Denies headache(s) and Denies poor appetite Eyes Reports no additional complaints ENT Denies dizziness and Denies headache(s) Card Denies chest pain, Denies syncope, Denies lightheadedness and Denies dyspnea Resp Denies cough and Denies dyspnea GI Denies abdominal pain, Denies nausea and Denies vomiting Reports no additional complaints Musc Reports no additional complaints and Denies abnormal gait Skin/Breast Reports system reviewed and no additional complaints, except as documented Neuro Denies abnormal gait, Denies dizziness, Denies syncope and Denies headache(s) Psych Reports no additional complaints Physical exam (Primary Care) Vital Signs: Last Vital Signs Temp 97.1 F 06/18/24 08:16 Pulse 90 06/18/24 08:16 BP 118/72 06/18/24 08:16 Pulse Ox 99 06/18/24 08:16 Oxygen Delivery Method Room Air 06/18/24 08:16 BMI result Body Mass Index 30.3 Tobacco/Smoking Status: Tobacco use Status Tobacco use date assessed 06/18/24 06/18/24 08:31 Patient Tobacco Use Status Never used Tobacco 06/18/24 08:31 e-Cigarette/Vaping Use Never Used 06/18/24 08:31 PHQ-9: PHQ-9 Score PHQ-9: Total score 0 06/18/24 08:31 Depression Screening Interpretation: Negative Thrive Assessment: Date of Thrive Assessment Date Thrive assessed 06/18/24 06/18/24 08:31 Const General: cooperative, healthy appearing, comfortable and no acute distress Orientation/consciousness: patient oriented x3 HENMT Head: Yes normocephalic Ears: hearing grossly normal bilaterally General nose exam: Normal external nose present Eyes General: appearance normal, both eyes and all related structures Conjunctivae: conjunctivae normal Neck Neck: Yes full ROM and Yes no lymphadenopathy Resp Effort & Inspection: normal respiratory effort Auscultation: clear to auscultation bilaterally, no crackles, no rales, no rhonchi and no wheezes Cardio Rate: regular rate Rhythm: regular rhythm Skin General skin exam: no rashes or lesions noted Neuro General: patient oriented x3 Gait exam (Neuro): Normal gait present Extrem General: Yes normal to inspection, Yes full ROM and No edema Psych Affect: normal affect Attitude: cooperative Insight: Good insight present (Psych) Judgement: Good judgement present (Psych) Results AMB Hemoglobin A1c AMB Hemoglobin A1c 6.9 % Last Edit by KIMMY Galvin on 06/18/24 08:32 Results Reviewed Results Reviewed: Laboratory Last Values Hgb A1c (Clinic) 6.9 % (4.0-6.0) H 06/18/24 08:14 Coding Level of Care Code Est Pt Level 3 (71957) Diagnoses Elevated LFTs R79.89 Diabetes mellitus type 1 E10.9 Hypercholesterolemia E78.00 Hypertension I10 Assessment & Plan Assessment & Plan (1) Elevated LFTs: Code(s): R79.89 - Other specified abnormal findings of blood chemistry Category: Medical Plan: Continue to monitor LFTs with serial blood work. Consider abdominal ultrasound (2) Diabetes mellitus type 1: Code(s): E10.9 - Type 1 diabetes mellitus without complications Category: Medical Plan: Decrease the amount of carbohydrates such as pasta, bread, rice, and potatoes and limit the amount of sweets. Although fruits are generally healthy they should be eaten in moderation as they are still high in sugar. Hemoglobin A1c goal of less than 7%. Currently following with endocrinology and on insulin pump. A1c in the clinic today 6.9% continue to follow with endocrinology (3) Hypercholesterolemia: Code(s): E78.00 - Pure hypercholesterolemia, unspecified Category: Medical Plan: Avoid foods that are high in cholesterol such as red meat, fried foods, eggs and baked goods. Triglyceride goal of less than 150 and LDL goal of less than 100. Continue on simvastatin 20 (4) Hypertension: Code(s): I10 - Essential (primary) hypertension Category: Medical Plan: Continue on current blood pressure medication. Avoid salt intake and encourage healthy diet and regular exercise. Plan This note was constructed using voice recognition software. While every effort has been made to ensure accuracy and tanbark peeler, still areas may have been included sometimes these areas may affect the content or meeting of the given symptoms. Total time spent caring for the patient today was 20 minutes. This includes time spent before the visit reviewing the chart, time spent during the visit, and time spent after the visit and documentation. Orders: Orders AMB Hemoglobin A1c Today E10.9 - Type 1 diabetes mellitus without complications Liver Panel Today R79.89 - Other specified abnormal findings of blood chemistry Lipid Panel Today E78.00 - Pure hypercholesterolemia, unspecified Medications: New fexofenadine 180 mg PO DAILY 30 tabs 1RF benzonatate 100 mg PO BID PRN 14 caps 0RF cough Refilled simvastatin 20 mg (2 x 10 mg) PO DAILY 180 tabs 0RF
[2024-06-18 08:16] VITALS: BP 118/72; PULSE 90; TEMP 36.2; O2SAT 99; BMI 30.3
== END 2024-06-18 08:54 | disposition home or self-care (01) ==
DX: R79.89 Other specified abnormal findings of blood chemistry (principal); E10.9 Type 1 diabetes mellitus without complications; E78.00 Pure hypercholesterolemia, unspecified; I10 Essential (primary) hypertension

== ENCOUNTER 2024-06-18 08:08 | Outpatient (REF) | payer OTHER, SELFPAY ==
[2024-06-18 10:14] LABS: Alanine Aminotransferase 46 U/L (0-40); Albumin Level 4.2 g/dL (3.5-5.0); Alkaline Phosphatase 60 U/L (39-117); Aspartate Amino Transferase 26 U/L (5-37); Bilirubin Direct 0.3 mg/dL (0.0-0.5); Bilirubin Total 1.2 mg/dL (0.0-1.0); Cholesterol 210 mg/dL (<200); HDL Cholesterol 60 mg/dL (>40); LDL Cholesterol Calculated 138 mg/dL (<100); Total Protein 7.7 g/dL (6.5-8.0); Triglycerides 60 mg/dL (<150)
== END 2024-06-18 08:09 | disposition home or self-care (01) ==
LOC: HO.LAB 08:08
DX: E10.9 Type 1 diabetes mellitus without complications (principal); R79.89 Other specified abnormal findings of blood chemistry; E78.00 Pure hypercholesterolemia, unspecified; I10 Essential (primary) hypertension; Z79.899 Other long term (current) drug therapy
CPT/HCPCS: 36415; 80061; 80076; 83036; 99212

== ENCOUNTER 2024-06-19 08:01 | Outpatient (AMB) | payer OTHER, SELFPAY ==
--- NOTE | 2024-06-19 07:06 | A.OFFVIS_ITS ---
Vital Signs 06/19/24 08:03 Height 5 ft 11 in Weight 220 lb 7.396 oz BMI 30.7 BP 120/80 Blood Pressure Location Rt brachial Position Sitting Pulse 72 Pulse Source Pulse Oximeter Pulse Oximetry (%) 97 Oxygen Delivery Method Room Air Intake Visit Reasons: T1DM Intake Note: NEW Patient presents today to establish treatment for Type 1 Diabetes Mellitus: Last Diabetic eye exam was on: 02/16/2024, [facility] Last Podiatry exam was on: Patient does not see a Emt Most recent HbA1c: 6.9%, 06/18/2024 Random Glucose- 106 mg/dL, Today Consulting Intern Required: No Accompanied by: Self / Same As Patient Allergies Penicillins Allergy (Mild, Verified 06/19/24 08:15) Unknown HPI Comments Details: 29 YO is seen in f/u for T1DM. He was seen as an initial consult by Dr. Maynard on 03/19/2024 at which time it was recommended that he go on a freestyle Salazar 3+ and have blood work done to confirm that he was a type 1. He was seen several times afterwards by Dina YUAN and started on an ilet insulin pump. HGB A1c 06/19/2024 6.9%, 10/ 7.8 % 03/2024 gada <5.0 insulin auto antibodies positive 6.2 C-peptide 0.27 Initially diagnosed with T1DM in since age 13 when he presented to the hospital with symptoms. He was followed by endocrine in [place]. Was initially started on treatment with insulin. Current regimen: humalog via ilet insulin pump Back up pump failure plan: Lantus 30 units Humalog 12 units TID Freestyle salazar 3+average glucose: 155 14 day continuous glucose monitor report reviewed Glucose Managment indicator [ ] % Days with CGM data 100 % TIme in ranges: 5.2 % very high (above 250) 24.7 % high (181-250) 67.3 % in range (70-180] 1.9 % low (69-55) 0.4 % very low (below 54) Interpretation: Excellent control with a few brief transient lower sugars. If low he validates with fingerstick Treats lows with juice,glucose tablets Checks sugar after to ensure it is rising. Has nasal spray for rescue hypoglycemia at work and at home. and coworkers no how to administer and where to find. Family history of autoimmunity in grandmother - Type 2 DM - cousin has Type 1 Denies retinopathy: Has eyes checked yearly, last eye exam 01/2024 Denies neuropathy, denies numbness, tingling, pain or cramping in the lower extremities. does not see podiatry, walks barefooted Has nephropathy: 02/16/24 eGFR>60 microalbumin 34.0 Has HLD, on statin ldl 06/18/24 Denies history of CAD. Had diabetes education in [place] and has met with Dina YUAN 3 times here in 2023 Has new born son born 03/24/24. Diet/Carb counting: metting with RD today. Announces his meals as large if 50% more carbohydrates, smaller with less than 25% Denies prior episodes of DKA. Has had prior severe episodes of hypoglycemia requiring help or hospitalization 2 times - Nov 2021, June and May 2022 . [facility] Surgical History No pertinent past surgical history Family History Maternal Grandmother Colon cancer Social History Housing: Apartment Alcohol intake: never Patient Tobacco Use Status: Never used Tobacco e-Cigarette/Vaping Use: Never Used Second Hand Smoke Exposure: No service: No Current occupational status: employed Cognitive needs: No Hearing needs: No Vision needs: Yes (Glasses) Physical Exam Vital Signs: Last Vital Signs Pulse 72 06/19/24 08:03 BP 120/80 06/19/24 08:03 Pulse Ox 97 06/19/24 08:03 Oxygen Delivery Method Room Air 06/19/24 08:03 BMI result Body Mass Index 30.7 Const Other: Absence of Cushingoid features. Absence of acromegalic features. Neck exam reveals nl size thyroid about 15 gms. No thyroid nodules palpable. Heart S1 S2, Reg R/R. No M/R G. Skin exam reveals absence of vitiligo or acanthosis nigricans. Visual exam of foot performed. No ulcerations or open lesions. No inter digit maceration or fissuring. No onychomycosis, no callouses. Sensation intact to monofilament exam. Vibratory sensation is normal with 128 Hz tuning fork. Office Procedures Glucose Monitoring Details Details: see [facility] [id number] - Glucose monitoring, continuous-physician I&R Procedure code (CPT) selection complete Results Reviewed Results Reviewed: Laboratory Last Values Glucose (Clinic) 106 mg/dL (60-115) 06/19/24 08:15 Assessment & Plan Assessment & Plan (1) Diabetes mellitus type 1: Code(s): E10.9 - Type 1 diabetes mellitus without complications Category: Medical Plan: This is 29-year-old type 1 diabetic with nephropathy with normal renal function recently started on an ilet pump with Freestyle Salazar 3+. hemoglobin A1c 06/19/2024 6,9 %. previous 7.8% 02/16/2024. He is able to verbalize pump trouble shooting skills, when to change pump, when to test for ketones. the patient was advised he must always have a sensor paired with his pump and if not needs to manually enter blood glucose every 4 hours in order for the pump to keep operating. The patient had an opportunity to ask questions regarding treatment plan. The patient expressed understanding and agreement with the above treatment plan. The patient is aware they should contact our office by phone for worsening glucose readings or for any low blood sugars which may warrant a change in diabetes medication. Compliance is encouraged with medications and any followup testing/consults which may have been ordered. Orders: Orders AMB Glucose Monitoring Today E10.9 - Type 1 diabetes mellitus without complications Patient Instructions: Troubleshooting after starting new pod or inserting new insulin set: Occlusion, adhesive tape sensitivity, redness Check BG 2 hours after site change Safety information: Importance of a backup plan, for manual injections, proper prescriptions and emergency supplies ketone strips, and rules for testing for ketones Symptoms of DKA (diabetic ketoacidosis): early: frequent urination, dry mouth, fatigue, feeling ill, severe symptoms: ketones in the urine, abdominal pain, nausea, vomiting and weakness. It is important to hydrate with sugar free liquids every 15-30 minutes and bring the sugars down to normal levels. If you are moderate or severe with ketones or unable to bring glucose to less than 200, go to the emergency room. Check your feet daily looking for any signs of infection, drainage, redness, ulceration and seek medical attention if this occurs. Break in shoes gradually and do not wear open-toed shoes or walk stocking footed or barefooted. Coding Level of Care Code Est Pt Level 5 (95505) Complex EM visit Add On G2211 Diagnoses Diabetes mellitus type 1 E10.9 CPT Codes Details - CPT: 50709 - Glucose monitoring, continuous-physician I&R ([id number]) Time Spent (min) 65 Comment Reviewing labs/provider notes, glucose sensor/pump reports, face to face, chart doc
[2024-06-19 08:03] VITALS: BP 120/80; PULSE 72; O2SAT 97; BMI 30.7
[2024-06-19 08:20] LABS: Glucose, Whole Blood 106 mg/dL (60-115)
== END 2024-06-19 08:46 | disposition home or self-care (01) ==
PROVIDERS: Visit Provider Nurse Practitioner Adult Health
DX: E10.9 Type 1 diabetes mellitus without complications (principal)
CPT/HCPCS: 95251; 99215; G2211

== ENCOUNTER → 2024-06-19 08:01 | Outpatient (AMB) | payer OTHER, SELFPAY ==
--- NOTE | 2024-06-19 08:48 | A.OFFVIS_ITS ---
VS Expanded 06/19/24 08:50 06/19/24 08:55 Height 5 ft 11 in 5 ft 11 in Weight 217 lb 13.067 oz 218 lb BMI 30.4 30.4 Intake Visit Reasons: Type 1 diabetes mellitus without complications Allergies Penicillins Allergy (Mild, Verified 06/19/24 08:15) Unknown Nutrition Presentation Details: Pt presents for MNT for T1DM Pt wants to discuss carb counting and how to increase fiber Food frequency fruits/0-1/d vex/wk starches >20 dairy: 4x/wk fish: 0-1/wk etoh/smoking- denies physical activity: daily life activities +active at work BS Monitoring Most Recent Diabetes Results: Cholesterol 210 mg/dL (<200) H 06/18/24 HDL Cholesterol 60 mg/dL (>40) 06/18/24 Triglycerides 60 mg/dL (<150) 06/18/24 AST 26 U/L (5-37) 06/18/24 ALT 46 U/L (0-40) H 06/18/24 Total Protein 7.7 g/dL (6.5-8.0) 06/18/24 Albumin 4.2 g/dL (3.5-5.0) 06/18/24 IOF-Xnltdim-Za.Jeor Equation Height: 5 ft 11 in Weight: 218 lb Resting Metabolic Rate: 1977.29 Calculated Activity Level: Mild Activity Calories Needed to Maintain Weight: 2718.77 Diagnosis Nutrition problem #1: altered nutrition labs As related to (etiology) #1: diagnosis As evidenced by (sign/symptom) #1: food recall [facility] Surgical History No pertinent past surgical history Family History Maternal Grandmother Colon cancer Social History Housing: Apartment Alcohol intake: never Patient Tobacco Use Status: Never used Tobacco e-Cigarette/Vaping Use: Never Used Second Hand Smoke Exposure: No service: No Current occupational status: employed Cognitive needs: No Hearing needs: No Vision needs: Yes (Glasses) Assessment & Plan Assessment & Plan (1) Diabetes mellitus type 1: Code(s): E10.9 - Type 1 diabetes mellitus without complications Category: Medical Plan: Wt: 99 Kg (06/18 ) Est kcal needs as per MSJ: 2700 (40% carb, 30% protein/fat) Est fluid needs as per 25-30 ml/d: 3000 Est prot per day as per 1 g/kg bw: 100 Recommend fiber intake : 8-10 g per day and gradually increase to 25-28 g per day for women and 35-38 g for men or as tolerated Recommend sodium intake per day : less than 1500 mg less than 2000 mg Educated patient on: ( R = reviewed V = verbalizes understanding N/R = needs review N/A = not applicable * Food sources of carbohydrate, adequate serving sizes and its role in various health conditions: R * Differences between complex carbohydrates a simple carbohydrates, role of fiber in diet: R * Lean protein sources of foods: R * Differences between types of fats and role in diet (mono on saturated fat fatty acids, saturated fatty acids, trans fats): R V N/R * Food sources of sodium in salt and healthy modifications for heart health in kidney health: R V R/V * Vitamins and minerals: R V N/R * Healthy plate method concept: R * Physical activity: Benefits a precaution: R V N/R * Hypoglycemia protocol (rule of 15): R V N/R * Dietary prevention of Hyperglycemia: R Patient Instructions: Choose complex carbohydrates and balancing meals with lean protein Recommend 80-90 g carb at meal (3 meals/day) following healthy plate method Keep hydrated by having water/low sugar beverages Coding Level of Care Code Nutr Indiv Intake (70143) Diagnoses Diabetes mellitus type 1 E10.9 Time Spent (min) 30
[2024-06-19 08:50] VITALS: BMI 30.4
[2024-06-19 08:55] VITALS: BMI 30.4
== END ==
PROVIDERS: Visit Provider Dietitian, Registered
DX: E10.9 Type 1 diabetes mellitus without complications (principal)

== ENCOUNTER 2024-06-19 10:37 | Outpatient (REF) | payer OTHER, SELFPAY ==
--- NOTE | ~2024-06-19 | US_ITS ---
CLINICAL HISTORY: R79.89 - Other specified abnormal findings of blood chemistry US abdomen complete. COMPARISON: None Technique: Real time sonographic imaging, including color-flow imaging, was performed by the dining manager. Multiple insurance account representative static images were saved for review. FINDINGS: The visualized aorta and inferior vena cava are normal caliber. The visualized portions of the pancreas appear normal. The liver has normal echotexture. Liver, right lobe size: 12.9 cm, normal. The gallbladder is normal in size. No cholelithiasis or sludge identified. There is a negative sonographic Disla's sign. Gallbladder wall: 2 mm, normal. Common bile duct: 5 mm, normal. Right kidney: Cortical medullary differentiation is maintained. Anechoic simple cyst within the midpole of the right kidney measuring 1.2 x 1.0 x 1.0 cm. No hydronephrosis. Right kidney length: 11.2 cm Left kidney: Cortical medullary differentiation is maintained. No calculus or focal parenchymal abnormality identified. No hydronephrosis. Left kidney length: 10.5 cm The spleen has normal echogenicity. Small splenule present measuring up to 1.6 cm. Splenic length: 10.3 cm, normal. No free intraperitoneal fluid identified. IMPRESSION: 1. No cause for patient's symptoms identified. No evidence of cholecystitis or renal obstruction. This document has been electronically signed by: Cresencio Briggs MD on 06/19/2024 15:53:14
== END 2024-06-19 10:38 | disposition home or self-care (01) ==
LOC: HO.HMGCX 10:37
DX: R79.89 Other specified abnormal findings of blood chemistry (principal); E10.9 Type 1 diabetes mellitus without complications
CPT/HCPCS: 76700; 97802

== ENCOUNTER → 2024-06-19 10:53 | Outpatient (BNV) | payer OTHER, SELFPAY | PROVIDERS: Visit Provider Radiology Diagnostic Radiology | DX: R79.89 Other specified abnormal findings of blood chemistry (principal) | CPT/HCPCS: 76700 ==

== ENCOUNTER 2024-10-14 08:58 | Outpatient (REF) | payer OTHER, SELFPAY ==
--- OUTSIDE RECORDS SUMMARY | 2024-10-14 09:35 | XMS_ITS | Patient Health Record ---
Author Organization [facility] Address [place] [id number] Care Team Providers Care Military Pilot Name Role Phone DR JERAMY WHITE Primary Care Provider [phone] [address] KONRAD WHITE Unavailable Allergies Allergen (clinical drug ingredient) Drug/Non Drug Allergy documented on EMR Reaction Allergy Type Onset Date Status penicillin G Penicillin G Potassium rash Drug Allergy 0 10/19/2021 Active Reason For Referral No Information Medications Medication SIG (Take, Route, Frequency, Duration) Notes Start Date End Date Status Lantus 100 UNIT/ML as directed Subcutaneous DAILY 40ui pm for 30 days 11/01/2022 Active Insulin Lispro 100 UNIT/ML as directed Injection Q8H for 30 days 10/31/2022 Active HumaLOG 100 UNIT/ML as directed Injectio n 15UI cada 8 horas for 30 days 11/01/2022 Active HumaLOG 100 UNIT/ML as directed Injectio n cada 12 horas for 30 days 11/01/2022 Active HumaLOG 100 UNIT/ML 15 UNITS Subcutaneou s TID for 30 days PLEASE DISPATCH ONE MONTH SUPPLY Active Simvastatin 20 MG 1 tablet in the evening Orally Once a day for 30 day(s) 03/30/2020 Active Insulin Syringe 31G X 5/16 1 ML ONE SYRINGE S/C John veces al maryanne for 30 days PLEASE DISPATCH ONE MONTH SUPPLY (150 SYRINGES PER MONTH). 03/30/2020 Active HumuLIN N 100 UNIT/ML 25 u am and 15 u pm Subcutaneous DAILY for 30 days PLEASE DISPATCH ONE MONTH SUPPLY 04/21/2017 Active Lisinopril 5 MG 1 tablet Orally Once a day for 30 day(s) 08/23/2022 Active HumaLOG 100 UNIT/ML as directed Subcutaneous Q8H for 30 days 03/30/2020 Active Insulin Glargine 100 UNIT/ML as directed Subcutaneous 40UI PM for 30 days 10/31/2022 Active Immunizations Vaccine Route Administration Date Status Comme nts COVID-19 Damian Unknown 09/19/2020 Administered FLULAVAL QUADRIVALENT IM Intramuscular 04/12/2018 Administ ered Social History Tobacco Use: Social History Observation Description Date Details (start date - stop date) Never Smoker NA - NA Sex Assigned At : Social History Observation Description Sex Assigned At Male Tobacco Use/Smoking Question Answer Notes Are you a nonsmoker Alcohol Screen (Audit-C) Question Answer Notes Did you have a drink containing alcohol in the p ast year? No Points 0 Interpretation Negative Sexual History Question Answer Notes Had sex in the past 12 months (vaginal, oral, or anal)? Yes with Women only Have you ever had a Sexually transmitted disease ? No Tobacco use other than smoking: Question Answer Notes Are you an other tobacco user? 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.4) Active confirmed Problem Nephrolithiasis (27818354) Nephrolithiasis (N20.0) Active confirmed Problem Type II diabetes mellitus without complication (124418057) Insulin dependent diabetes mellitus (E11.9) Active confirmed Problem Body mass index 25-29 - overweight (597675047) BMI 28.0-28.9,adult (Z68.28) Active confirmed Problem Type 2 diabetes mellitus (22390240) Type 2 diabetes mellitus (E11.9) Active confirmed Problem Type II diabetes mellitus without complication (576166673) Controlled diabetes mellitus (E11.9) Active confirmed Problem Type 2 diabetes mellitus well controlled (894623376) Controlled diabetes mellitus type II without complication (E11.9) Active confirmed Problem Essential hypertension (99304980) HTN (hypertension), benign (I10) Active confirmed Problem Dietary management surveillance (699176795) Dietary counseling (Z71.3) Active confirmed Problem Hyperchloremia (78681296) Hyperchloremia (E87.8) Active confirmed Encounters Encounter Location Date Provider Diagnosis [facility] S[place]AN [place] [address] [place] [place] [id number] 10/17/2023 JERAMY AWAN Plan Of Treatment Pending Test Test Name Order Date Thyroid Panel With TSH 07/09/2015 T4, Thyroxine; Total 11/18/2015 T3 Uptake 11/18/2015 Hemoglobin A1c 07/09/2015 Hemoglobin A1c 05/02/2016 Urinalysis, Complete 07/09/2015 Urinalysis, Complete 11/18/2015 TSH 11/18/2015 CBC With Differential/Platelet 6 CBC With Differential/Platelet 6 Creatinine, Urine 11/18/2015 Microalb/Creat Ratio, Randm Ur 6 Occult Blood, Fecal, IA 07/09/2015 Occult Blood, Fecal, [place] 11/18/2015 Lipid Panel 07/09/2015 Lipid Panel 11/18/2015 Comp. Metabolic Panel (14) 07/09/2015 Comp. Metabolic Panel (14) 11/18/2015 Glucose Fasting (FBS) - 05301 05/02/2016 Microalbumin Urine 11/18/2015 Hemoglobin A1c 11/18/2015 Insurance Providers Payer Name Payer Address Payer Phone Subscriber Number Group Number Insured Name Patient Relationship to Insured Coverage Start Date Coverage End Date [employer] [address] [address] [place], [place] [id number] SAVAGE GONZALES Self - patient is the insured SLIDING FEE SAVAGE GONZALES Self - patient is the insured [employer] [address] [address] [place], [place] [id number] SAVAGE GONZALES Self - patient is the insured 3 Medical (General) History Medical History History ICD Code Type 2 diabetes mellitus without complic ations E11.9 Controlled diabetes mellitus type II wit hout complication E11.9 Controlled diabetes mellitus E11.9 Insulin dependent diabetes mellitus E11. 9 Urinary tract infection, site not specif ied N39.0 Surgical History Surgery Date(Month/Year)
[2024-10-14 10:07] LABS: Cholesterol 189 mg/dL (<200); HDL Cholesterol 56 mg/dL (>40); LDL Cholesterol Calculated 125 mg/dL (<100); Triglycerides 41 mg/dL (<150)
== END 2024-10-14 08:59 | disposition home or self-care (01) ==
LOC: HO.LAB 08:58
DX: E78.00 Pure hypercholesterolemia, unspecified (principal)
CPT/HCPCS: 36415; 80061

== ENCOUNTER 2024-10-15 06:57 | Outpatient (AMB) | payer OTHER, SELFPAY ==
--- NOTE | 2024-10-15 07:07 | A.OFFVIS_ITS ---
Vital Signs 10/15/24 07:31 Height 5 ft 10 in Weight 212 lb 11.937 oz BMI 30.5 BP 120/86 Blood Pressure Location Lt brachial Position Sitting Pulse 85 Pulse Source Pulse Oximeter Pulse Oximetry (%) 99 Oxygen Delivery Method Room Air Intake Visit Reasons: T1DM Intake Note: Patient presents today for a follow-up on Type 1 Diabetes Mellitus: Last Diabetic eye exam was on: 02/16/2024, [facility] Last Podiatry exam was on: Patient does not see a Surg Nurse Most recent HbA1c: 7.4% Random Glucose- 132 mg/dL Marketing And Communications Officer Required: Yes Marketing And Communications Officer Language: Milking Worker Services: Marketing And Communications Officer Present Marketing And Communications Officer Name: Tiffanie [id number] Information Interpreted: non-clinical & clinical Accompanied by: Self / Same As Patient Allergies Penicillins Allergy (Mild, Verified 10/15/24 07:34) Unknown HPI Comments Details: 29 YO is seen in f/u for T1DM. He was seen as an initial consult by Dr. Maynard on 03/19/2024 at which time it was recommended that he go on a freestyle Salazar 3+ and have blood work done to confirm that he was a type 1. He was seen several times afterwards by Dina YUAN and started on an ilet insulin pump 03/2024. HGB A1c 10/15/24 7.4%,06/19/2024 6.9%, 10/ 7.8 % 03/2024 gada <5.0 insulin auto antibodies positive 6.2 C-peptide 0.27 Initially diagnosed with T1DM in since age 13 when he presented to the hospital with symptoms. He was followed by endocrine in [place]. Was initially started on treatment with insulin. Current regimen: humalog via ilet insulin pump Back up pump failure plan: Lantus 25 units Humalog 12 units TID He reports his numbers had been a little higher a few weeks ago when traveling but now have settled down. Freestyle salazar sensor 3 average glucose: 153 14 day continuous glucose sensor report reviewed TIme in ranges: 5.1 % very high (above 250) 22.7 % high (181-250) 69.7 % in range (70-180] 2.2 % low (69-55) 0.4 % very low (below 54) 25.2 Glucose variability (target <36%) Interpretation of CGMS well-controlled with mild lows Interpretation: Excellent control with a few brief transient lower sugars after supper If low he validates with fingerstick Total daily dose of insulin 58.9 Basal 25.2 Announcing 30 breakfast 28 lunches 30 suppers in order to recieve enough insulin Treats lows with juice,glucose tablets Checks sugar after to ensure it is rising. Has nasal spray for rescue hypoglycemia at work and at home. and coworkers know how to administer and where to find. Family history of autoimmunity in grandmother - Type 2 DM - cousin has Type 1 Denies retinopathy: Has eyes checked yearly, last eye exam 01/2024 [facility] Denies neuropathy, denies numbness, has mild tingling slight burning last few weeks, no cramping in the lower extremities. does not see podiatry, walks barefooted Has nephropathy: 02/16/24 eGFR>60 microalbumin 34.0 Has HLD, on statin ldl 125 10/14/24 he has been inconsistent with taking his statin Denies history of CAD. Denies symptoms of chest pain, dyspnea or claudication. Had diabetes education in [place] and has met with Dina YUAN 3 times here in 2023 and more recently to start on ilet pup. Has new born son born 03/24/24. Diet/Carb counting: Denies prior episodes of DKA. Has had prior severe episodes of hypoglycemia requiring help or hospitalization 2 times - Nov 2021, June and May 2022 . [facility] Surgical History No pertinent past surgical history Family History Maternal Grandmother Colon cancer Social History Housing: Apartment Alcohol intake: never Patient Tobacco Use Status: Never used Tobacco e-Cigarette/Vaping Use: Never Used Second Hand Smoke Exposure: No service: No Current occupational status: employed Cognitive needs: No Hearing needs: No Vision needs: Yes (Glasses) Physical Exam Vital Signs: Last Vital Signs Pulse 85 10/15/24 07:31 BP 120/86 10/15/24 07:31 Pulse Ox 99 10/15/24 07:31 Oxygen Delivery Method Room Air 10/15/24 07:31 BMI result Body Mass Index 30.5 Const Other: Absence of Cushingoid features. Absence of acromegalic features. Neck exam reveals nl size thyroid about 15 gms. No thyroid nodules palpable. Heart S1 S2, Reg R/R. No M/R G. Skin exam reveals absence of vitiligo or acanthosis nigricans. No edema Visual exam of foot performed. No ulcerations or open lesions. No inter digit maceration or fissuring. No onychomycosis, no callouses. Sensation intact to monofilament exam. Vibratory sensation is normal with 128 Hz tuning fork.pulses positive distally Office Procedures Glucose Monitoring Details Details: see [facility] [id number] - Glucose monitoring, continuous-physician I&R Procedure code (CPT) selection complete Results AMB Hemoglobin A1c AMB Hemoglobin A1c 7.4 % Last Edit by KIMMY Donaldson on 10/15/24 07:49 Results Reviewed Results Reviewed: Laboratory Last Values Glucose (Clinic) 132 mg/dL (60-115) H 10/15/24 07:38 Assessment & Plan Assessment & Plan (1) Diabetes mellitus type 1: Code(s): E10.9 - Type 1 diabetes mellitus without complications Category: Medical Plan: 29-year-old type 1 diabetic with no known macro/macrovascular complications doing well on an islet insulin pump. He typically needs to announce 2 meals in order to keep his sugars lower postprandial. He was counseled that he should regularly take his statin and that to prevent complications good blood pressure, low LDL and good diabetes control are essential for his health. The patient had an opportunity to ask questions regarding treatment plan. The patient expressed understanding and agreement with the above treatment plan. The patient is aware they should contact our office by phone for worsening glucose readings or for any low blood sugars which may warrant a change in diabetes medication. Compliance is encouraged with medications and any followup testing/consults which may have been ordered. He is changing insurances as he is moving to [place]. He was counseled that as soon as his insurance changes that he will most likely we will need new prior authorization for all of his supplies and may need to change the brand of insulin he takes so that he should not wait until the last minute to refill prescriptions. He was also counseled that it can take quite some time to get a new endocrinology appointment and he should do this now rather than wait until he moves. Plan The patient was counseled to achieve a target A1C of 7% (154 avg). Fasting blood sugars should be 90-130 in the morning and less than 180 two hours after meals. Reviewed the relationship between poor diabetic control and the development of complications. Check your feet daily looking for any signs of infection, drainage, redness, ulceration and seek medical attention if this occurs. Break in shoes gradually and do not wear open-toed shoes or walk stocking footed or barefooted. Symptoms of DKA (diabetic ketoacidosis): early: frequent urination, dry mouth, fatigue, feeling ill, severe symptoms: ketones in the urine, abdominal pain, nausea, vomiting and weakness. It is important to hydrate with sugar free liquids every 15-30 minutes and bring the sugars down to normal levels. If you are moderate or severe with ketones or unable to bring glucose to less than 200, go to the emergency room. Troubleshooting after starting new pod or inserting new insulin set: Occlusion, adhesive tape sensitivity, redness Check BG 2 hours after site change Safety information: Importance of a backup plan, for manual injections, proper prescriptions and emergency supplies ketone strips, and rules for testing for ketones Take 15 carb carbohydrate grams to treat a low sugar (3-4 glucose tablets, half a glass of juice or 15 carbohydrate grams of soft candy such as gummie snacks). Recheck your sugar in 15 minutes and re-treat again with 15 carbohydrate grams if low or still with symptoms. Do not drive a car or operate machinery if you do not know what your blood sugar is, if it is low or in excess of 300. Orders: Orders AMB Glucose Monitoring Today E10.9 - Type 1 diabetes mellitus without complications AMB Hemoglobin A1c Today E10.9 - Type 1 diabetes mellitus without complications, Z13.9 - Encounter for screening, unspecified Medications: Changed From insulin glargine-yfgn 30 units (0.3 mL) subcut DAILY 10 mL 0RF To insulin glargine-yfgn 25 units (0.25 mL) subcut DAILY 7.5 mL 1RF 30 days Discontinued flash glucose sensor (FreeStyle Salazar 2 Sensor kit) Discontinued Reason: No Longer Medically Relevant As directed 1 ea 2RF Coding Level of Care Code Tele New Pt Level 4 (84192) Complex EM visit Add On G2211 Diagnoses Diabetes mellitus type 1 E10.9 CPT Codes Details - CPT: 52859 - Glucose monitoring, continuous-physician I&R ([id number])
[2024-10-15 07:31] VITALS: BP 120/86; PULSE 85; O2SAT 99; BMI 30.5
[2024-10-15 07:44] LABS: Glucose, Whole Blood 132 mg/dL (60-115)
== END 2024-10-15 08:23 | disposition home or self-care (01) ==
LOC: HO.ENCR 06:58
PROVIDERS: Visit Provider Nurse Practitioner Adult Health
DX: E10.9 Type 1 diabetes mellitus without complications (principal); Z13.9 Encounter for screening, unspecified
CPT/HCPCS: 95251; 99214

== ENCOUNTER 2024-10-15 06:57 | Outpatient (AMB) | payer OTHER, SELFPAY ==
--- OUTSIDE RECORDS SUMMARY | 2024-10-15 07:00 | XMS_ITS | Patient Health Record ---
Author Organization [employer] [facility] Address [place] [id number] Care Team Providers Care Data Collection Specialist Name Role Phone DR JERAMY WHITE Primary Care Provider [phone] DR KONRAD WHITE Unavailable Allergies Allergen (clinical [...] an other tobacco user? No Section Notes: [id number] OCRUZ BSNRN 94255 [id number] RNBSN NPACHECO [address] konrad aguayo lic 1546 Problems Problem Type SNOMED Code ICD Code Onset Dates Problem Status W/U Status Risk Notes Problem Type II diabetes mellitus without complication (471967630) Type 2 diabetes mellitus without complications (E11.9) Active confirmed Problem Urinary tract infectious disease (92775122) Urinary tract infection, site not specified (N39.0) Active confirmed Problem 350847223 Other specified counseling (Z71.89) Active confirmed Problem Body mass index 25-29 - overweight (390429224) BMI 28.0-28.9,adult (Z68.28) Active confirmed Problem Type 2 diabetes mellitus (68476971) Type 2 diabetes mellitus (E11.9) Active confirmed Problem Dietary management surveillance (787075521) Dietary counseling (Z71.3) Active confirmed Problem Hyperchloremia (60281369) Hyperchloremia (E87.8) Active confirmed Problem Essential hypertension (34290590) HTN (hypertension), benign (I10) Active confirmed Problem Type 2 diabetes mellitus well controlled (571693808) Controlled diabetes mellitus type II without complication (E11.9) Active confirmed Problem Type II diabetes mellitus without complication (094776711) Controlled diabetes mellitus (E11.9) Active confirmed Problem Type II diabetes mellitus without complication (045413670) Insulin dependent diabetes mellitus (E11.9) Active confirmed Problem Nephrolithiasis (63332460) Nephrolithiasis (N20.0) Active confirmed Problem 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.4) Active confirmed Encounters Encounter Location Date Provider Diagnosis [facility] S[place] [address] [place]OG[place] [id number] 10/17/2023 JERAMY AWAN Plan Of Treatment Pending [...] Panel (14) 11/18/2015 Glucose Fasting (FBS) - 60098 05/02/2016 Microalbumin Urine 11/18/2015 Hemoglobin A1c 11/18/2015 Insurance Providers Payer Name Payer Address Payer Phone Subscriber Number Group Number Insured Name Patient Relationship to Insured Coverage Start Date Coverage End Date [employer] [address] [address] [place], [place] [id number] SAVAGE GONZALES Self - patient is the insured SLIDING FEE SAVAGE GONZALES Self - patient is the insured [employer] [address] [address] [place], [place] [id number] SAVAGE GONZALES Self - patient is the insured 3 Medical (General) History Medical History History ICD Code Type 2 diabetes mellitus without complic ations E11.9 Controlled diabetes mellitus type II wit hout complication E11.9 Controlled diabetes mellitus E11.9 Insulin dependent diabetes mellitus E11. 9 Urinary tract infection, site not specif ied N39.0 Surgical History Surgery Date(Month/Year)
--- NOTE | 2024-10-15 07:21 | MHC.AMDMED ---
Intake Intake Visit Reasons: 30 min Leather Tacker Required: Yes Leather Tacker Language: Citizen Of [place] Accompanied by: Self / Same As Patient Allergies Penicillins Allergy (Mild, Verified 10/15/24 07:34) Unknown HPI Comprehensive Diabetes Asmnt Most Recent Diabetes Results: Cholesterol, (<200) 189 mg/dL 10/14/24 HDL Cholesterol, (>40) 56 mg/dL 10/14/24 Triglycerides, (<150) 41 mg/dL 10/14/24 PFSH Surgical History No pertinent past surgical history Family History Maternal Grandmother Colon cancer Social History Housing: Apartment Alcohol intake: never Patient Tobacco Use Status: Never used Tobacco e-Cigarette/Vaping Use: Never Used Second Hand Smoke Exposure: No service: No Current occupational status: employed Cognitive needs: No Hearing needs: No Vision needs: Yes (Glasses) Assessment & Plan Assessment & Plan (1) Diabetes mellitus type 1: Code(s): E10.9 - Type 1 diabetes mellitus without complications Plan: Patient presents for pump training for iLet pump and Salazar 3+ CGM training today. The following topics were reviewed today: -Pump therapy basic concepts: Basal/bolus -For most effective glucose control bolus prior to meals - Off pump backup insulin plan iLet Alerts: Pt reports having ketone strips at home, denies having to test for ketones Patient also has several episodes of hypoglycemia, reviewed with patient not to over treat episodes of hypoglycemia with iLet since this can lead to pump delivering correction insulin, as a result causing additional hypoglycemia. Reminded patient that when he gets a low glucose alert, if he is not experiencing symptoms he should verify with a fingerstick. Overall patient reports being very satisfied with insulin pump. Instructed patient to only use room temperature insulin, how to load cartridge or fill pod, with insulin. Fill tubing and cannula (if applicable) Patient understands the basic concepts of pump therapy, how to give insulin for meals and snacks, how to troubleshoot for hyper and hypoglycemia. Patient will follow up with [facility] as instructed Patient will contact [facility] with questions or concerns, patient given IT number to support in any technical issues related to insulin pump Portions of this note were created using voice recognition software, please excuse any words or phrases that may have been misinterpreted. Coding Level of Care Code Est Pt Level 1 (95299) Diagnoses Diabetes mellitus type 1 E10.9
== END 2024-10-15 07:28 | disposition home or self-care (01) ==
LOC: HO.ENCR 06:58
PROVIDERS: Visit Provider Registered Nurse Diabetes Educator
DX: E10.9 Type 1 diabetes mellitus without complications (principal)

== ENCOUNTER → 2024-10-15 06:57 | Outpatient (BNVA) | payer OTHER, SELFPAY | PROVIDERS: Visit Provider Registered Nurse Diabetes Educator | DX: E10.9 Type 1 diabetes mellitus without complications (principal) | CPT/HCPCS: 82947; 83036; 99211 ==

== ENCOUNTER 2024-10-17 15:59 | Outpatient (AMB) | payer OTHER, SELFPAY ==
--- NOTE | 2024-10-17 15:59 | A.OFFPC_ITS ---
Intake Visit Reasons: f/u HTN, DM, HLD Theatrical Performer Required: Yes Accompanied by: Self / Same As Patient Allergies Penicillins Allergy (Mild, Verified 10/17/24 15:59) Unknown Medication List - Last Reconciled 10/17/24 by Michelle Wagner PA-C benzonatate 100 mg PO BID PRN blood-glucose sensor (FreeStyle Salazar 3 Plus Sensor device) As directed change every 15 days cholecalciferol (vitamin D3) 25 mcg PO DAILY fexofenadine 180 mg PO DAILY glucagon 3 mg/actuation (Baqsimi) 3 mg intranasal ONCE insulin glargine-yfgn 25 units (0.25 mL) subcut DAILY 30 days insulin lispro (Humalog KwikPen (U-100) Insulin) 12 units (0.12 mL) subcut TID insulin lispro (Humalog U-100 Insulin) Infuse up to 80 units via insulin pump subcutaneously 3 times a day; 30 days insulin syringes (disposable) As directed- QID with insulin administration Ketone Urine Test (acetone (urine) test) As directed NS lisinopril 10 mg PO DAILY simvastatin 40 mg PO DAILY triamcinolone acetonide 0.025% 1 appl topical DAILY Tobacco use date assessed: 10/17/24 Dental Screening Dental Screen Date: 10/17/24 HPI f/u HTN, DM, HLD HPI Details 29-year-old male with past medical histo ry of type 1 diabetes, hypercholesterolemia, hypertension last seen 06/2024 coming in for follow up. Patient follows with [facility] endocrinology. Luisa castroconference interpreter used f or the duration of this visit. Patient tells us today after the increase of the simvastatin from 20 mg to 40 mg he has been having poor compliance with the medication. He states he will miss doses 3-4 days at a time. Otherwise he feels generally well and has no acute concerns today. COUNT INCLUDES THE [facility] Surgical History No pertinent past surgical history Family History Maternal Grandmother Colon cancer Social History Housing: Apartment Alcohol intake: never Patient Tobacco Use Status: Never used Tobacco e-Cigarette/Vaping Use: Never Used Second Hand Smoke Exposure: No service: No Current occupational status: employed Cognitive needs: No Hearing needs: No Vision needs: Yes (Glasses) Questionnaire PHQ-9 Over the last 2 weeks, how often have you been bothered by any of the following problems? 1. Little interest or pleasure in doing things: not at all 2. Feeling down, depressed, or hopeless: not at all 3. Trouble falling or staying asleep, or sleeping too much: not at all 4. Feeling tired or having little energy: not at all 5. Poor appetite or overeating: not at all 6. Feeling bad about yourself - or that you are a failure or have let yourself or your family down: not at all 7. Trouble concentrating on things, such as reading the newspaper or watching television: not at all 8. Moving or speaking so slowly that other people could have noticed. Or the opposite - being so fidgety or restless that you have been moving around a lot more than usual: not at all 9. Thoughts that you would be better off or of hurting yourself in some way: not at all Total score: 0 Depression Screening Interpretation: Negative Depression Screening Done: Yes Source: Developed by Drs. Trent Baez, Amy Arango, Juarez Gonzalez and colleagues, with an educational mikayla from [employer] Thrive Questionnaire Date Thrive assessed: 10/17/24 I am a: Patient What is your living situation today?: I have a steady place to live Within the past 12 months, did the food you bought not last and you didn't have the money to get more?: Never true Within the past 12 months, did you worry whether your food would run out before you got money to buy more?: Never true Do you have trouble paying for medicines?: No Do you have trouble getting transportation to medical appointments?: No Do you have trouble paying your heating and electricity bill?: No Do you have trouble taking care of your child, family member or friend?: No Do you have trouble with day-to-day activities such as bathing, preparing meals, shopping, managing finances, etc.?: No Are you currently unemployed and looking for a job?: No Are you interested in more education?: No Please select the resources that you would like help with: None Currently or been in a relationship where the following occur: No concerns reported THRIVE Score: 0 AUDIT C Alcohol Use Questionnaire (AUDIT-C) 1. How often do you have a drink containing alcohol?: Never 3. How often do you have six or more drinks on one occasion?: Never Total Score: 0 MARA-7 AMB Questionnaire MARA-7 Date MARA - 7 assessed: 10/17/24 Feeling nervous, anxious, or on edge: 0 = Not at all Not being able to stop or control worryin = Not at all Worrying too much about different things: 0 = Not at all Trouble relaxin = Not at all Being so restless that it is hard to sit still: 0 = Not at all Becoming easily annoyed or irritable: 0 = Not at all Feeling afraid as if something awful might happen: 0 = Not at all Total MARA-7 score (0-4 normal; 5-9 mild; 10-14 moderate; 15-21 severe): 0 Source: Developed by Drs. Trent Baez, Amy Arango, Juarez Gonzalez and colleagues, with an educational mikayla from [employer] Review of Systems Const Denies body aches, Denies chills, Denies fever(s), Denies headache(s) and Denies poor appetite Eyes Reports no additional complaints ENT Denies dizziness and Denies headache(s) Card Denies chest pain, Denies edema, Denies irregular heart rhythm, Denies lightheadedness and Denies dyspnea Resp Denies cough and Denies dyspnea GI Denies abdominal pain, Denies constipation, Denies diarrhea, Denies nausea and Denies vomiting Reports no additional complaints Musc Reports no additional complaints and Denies abnormal gait Skin/Breast Reports system reviewed and no additional complaints, except as documented Neuro Denies abnormal gait, Denies dizziness and Denies headache(s) Psych Reports no additional complaints Physical exam (Primary Care) Vital Signs: Vital signs and physical exam not performed due to nature of telehealth visit Tobacco/Smoking Status: Tobacco use Status Tobacco use date assessed 06/18/24 06/18/24 08:31 Patient Tobacco Use Status Never used Tobacco 06/18/24 08:31 e-Cigarette/Vaping Use Never Used 06/18/24 08:31 Depression Screening Interpretation: Negative Thrive Assessment: Date of Thrive Assessment Date Thrive assessed 06/18/24 06/19/24 08:02 Currently or been in a relationship where the following occur: No concerns reported Telehealth Telehealth Telehealth Platform: Telephone Location of provider rendering services: practice address Location of patient: address on file Patient Identification confirmed using: Name, : Yes Telehealth method: voice only (Iphone) Patient verbally consented to treatment: Yes Patient verbally consented to billing insurance company: Yes Patient informed of any privacy concerns related to visit: Yes Coding Level of Care Code Tele Est Pt Level 3 (31029) Diagnoses Diabetes mellitus type 1 E10.9 Hypercholesterolemia E78.00 Assessment & Plan Assessment & Plan (1) Diabetes mellitus type 1: Code(s): E10.9 - Type 1 diabetes mellitus without complications Category: Medical Plan: Decrease the amount of carbohydrates such as pasta, bread, rice, and potatoes and limit the amount of sweets. Although fruits are generally healthy they should be eaten in moderation as they are still high in sugar. Hemoglobin A1c goal of less than 7%. Patient informs us today that he in the process of moving to [place]. I did inform him I would maintain his prescriptions until he was able to have a PCP in that area as I do not want him to go without his insulin. (2) Hypercholesterolemia: Code(s): E78.00 - Pure hypercholesterolemia, unspecified Category: Medical Plan: Avoid foods that are high in cholesterol such as red meat, fried foods, eggs and baked goods. Triglyceride goal of less than 150 and LDL goal of less than 100. Continue on simvastatin 40. Discussed with the patient adherence at this medication is very important. Last cholesterol labs likely inaccurate due to the patient not consistently taking his medications. We will not retest at this time as he is moving to [place] but we can maintain his prescriptions until he can find a PCP. Plan This note was constructed using voice recognition software. While every effort has been made to ensure accuracy and private secretary, still areas may have been included sometimes these areas may affect the content or meeting of the given symptoms. Total time spent caring for the patient today was 20 minutes. This includes time spent before the visit reviewing the chart, time spent during the visit, and time spent after the visit and documentation. Orders: Orders Lipid Panel 3 Months E78.00 - Pure hypercholesterolemia, unspecified Medications: Discontinued triamcinolone acetonide 0.025% for no longer than 2 weeks at a time. Discontinued Reason: Patient no longer taking 1 appl topical DAILY 60 mL 0RF benzonatate Discontinued Reason: Patient no longer taking 100 mg PO BID PRN 14 caps 0RF cough
--- OUTSIDE RECORDS SUMMARY | 2024-10-17 19:36 | XMS_ITS | Patient Health Record ---
Author Organization [facility] Address [place] [id number] Care Team Providers Care Telegraph Inspector Name Role Phone DR JERAMY WHITE Primary Care Provider [phone] DR KONRAD WHITE Unavailable Allergies Allergen (clinical [...] an other tobacco user? No Section Notes: por dr konrad aguayo lic 1546 OCRUZ BSNRN [id number] RNBSN NPACHECO [id number] JROS RNBSN 13927 Problems Problem Type SNOMED Code ICD Code Onset Dates Problem Status W/U Status Risk Notes Problem Hyperchloremia (97738474) Hyperchloremia (E87.8) Active confirmed Problem Dietary management surveillance (903882516) Dietary counseling (Z71.3) Active confirmed Problem Essential hypertension (04737939) HTN (hypertension), benign (I10) Active confirmed Problem Type 2 diabetes mellitus well controlled (573855016) Controlled diabetes mellitus type II without complication (E11.9) Active confirmed Problem Type II diabetes mellitus without complication (470741146) Controlled diabetes mellitus (E11.9) Active confirmed Problem Type 2 diabetes mellitus (88022265) Type 2 diabetes mellitus (E11.9) Active confirmed Problem Body mass index 25-29 - overweight (385891129) BMI 28.0-28.9,adult (Z68.28) Active confirmed Problem Type II diabetes mellitus without complication (938843864) Insulin dependent diabetes mellitus (E11.9) Active confirmed Problem Nephrolithiasis (24727864) Nephrolithiasis (N20.0) Active confirmed Problem 297898436 terminal superintendent (current) use of insulin (Z79.4) Active confirmed Problem 961237961 Other specified counseling (Z71.89) Active confirmed Problem Type II diabetes mellitus without complication (378617716) Type 2 diabetes mellitus without complications (E11.9) Active confirmed Problem Urinary tract infectious disease (60676654) Urinary tract infection, site not specified (N39.0) Active confirmed Plan Of Treatment Pending Test Test Name [...] Panel (14) 11/18/2015 Glucose Fasting (FBS) - 31555 05/02/2016 Microalbumin Urine 11/18/2015 Hemoglobin A1c 11/18/2015 Insurance Providers Payer Name Payer Address Payer Phone Subscriber Number Group Number Insured Name Patient Relationship to Insured Coverage Start Date Coverage End Date [employer] [address] [address] [place], [place] [phone] [id number] [employer] Self - patient is the insured SL[employer]ING [employer] Self - patient is the insured [employer] [address] [address] [place], [place] [phone] [id number] [employer] Self - patient is the insured 3 Medical (General) History Medical History History ICD Code Type 2 diabetes mellitus without complic ations E11.9 Controlled diabetes mellitus type II wit hout complication E11.9 Controlled diabetes mellitus E11.9 Insulin dependent diabetes mellitus E11. 9 Urinary tract infection, site not specif ied N39.0 Surgical History Surgery Date(Month/Year)
== END 2024-10-17 16:39 | disposition home or self-care (01) ==
LOC: HO.HMCH 15:59
DX: E10.9 Type 1 diabetes mellitus without complications (principal); E78.00 Pure hypercholesterolemia, unspecified

== ENCOUNTER → 2024-10-17 15:59 | Outpatient (BNVA) | payer OTHER, SELFPAY | DX: Z13.89 Encounter for screening for other disorder (principal) ==